=== PATIENT | male | born 1945 | race Caucasian/White ===

== ENCOUNTER 2021-06-16 21:52 | Emergency (ER) | payer MEDICARE, BC ==
[~2021-06-16] VITALS: Ht 177.8 cm; Wt 70.3 kg
--- NOTE | 2021-06-16 21:56 | NUR ---
BIBRA 89 C/O SYNCOPE EPI WHILE EATING DINNER AND DRINKING ALCOHOL PT FELL WITH LAC TO INSIDE OF BOTTOM LIP. PT A/OX4 AT THIS TIME. TOLERATING R/A WELL WITH NO SOB. CHANGE PT TO GOWN. CONNECTED PT TO POX AND MONITOR.
[2021-06-16] MEDS ORDERED: IV NS 0.9% 1,000 ML BAG IV ONE (22:00)
--- NOTE | 2021-06-16 22:14 | NUR ---
PT TAKEN TO CT VIA [facility]
--- NOTE | 2021-06-16 22:37 | NUR ---
URINE COLLECTED AND SENT TO LAB. [employer] LAB[employer]ER AT PT'S BEDSIDE
--- NOTE | 2021-06-16 22:37 | NUR ---
ORTHO VITALS SIGNS: LYING BP 108 / 55 P 72 SITTING BP 102/54 P 75 STANDING 103/ 63 P 97 PT DENIES N/V/D, DIZZINESS, OR BLURRED VISION AT THIS TIME. TOLERATED WELL.
[2021-06-16 23:03] LABS: BASOPHILS % (AUTO) 0.5 % (0.0-2.0); EOSINOPHILS % (AUTO) 0.6 % (0.0-6.0); HEMATOCRIT 46 % (39-51); HEMOGLOBIN 15.9 g/dL (13.5-17.5); LYMPHOCYTES # (AUTO) 1.9 K/uL (0.8-4.8); LYMPHOCYTES % (AUTO) 22.5 % (20.0-44.0); MEAN CORPUSCULAR HGB CONC 35 g/dl (31.0-36.0); MEAN CORPUSCULAR VOLUME 93 fL (80-96); MONOCYTES # (AUTO) 0.7 K/uL (0.1-1.30); MONOCYTES % (AUTO) 8.2 % (2.0-12.0); NEUTROPHILS # (AUTO) 5.6 K/uL (1.8-8.9); NEUTROPHILS % (AUTO) 68.2 % (43.0-81.0); PLATELET COUNT (AUTO) 363 K/uL (150-450); RED BLOOD CELL COUNT(AUTO) 4.88 MIL/uL (4.5-6.0); WHITE BLOOD COUNT (AUTO) 8.3 K/uL (4.3-11.0)
[2021-06-16 23:42] LABS: CALCIUM, SERUM 9.5 mg/dL (8.5-10.1); CARBON DIOXIDE 25 mmol/L (21-32); CHLORIDE 105 mmol/L (98-107); CREATININE 1.6 mg/dL (0.6-1.3); GLUCOSE 96 mg/dL (74-106); POTASSIUM 4.4 mmol/L (3.5-5.1); SODIUM SERUM 141 mmol/L (136-145); UREA NITROGEN, BLOOD 31 mg/dL (7-18)
[2021-06-16 23:50] LABS: ALANINE AMINOTRANSFERASE 34 U/L (12-78); ALBUMIN 4.2 g/dL (3.4-5.0); ALKALINE PHOSPHATASE 84 U/L (46-116); ASPARTATE AMINOTRANSFERASE 25 U/L (15-37); BILIRUBIN,DIRECT 0.1 mg/dL (0.0-0.2); BILIRUBIN,TOTAL 0.3 mg/dL (0.2-1.0); TOTAL PROTEIN, SERUM 7.7 g/dL (6.4-8.2)
[2021-06-17] MEDS ORDERED: IBUPROFEN 400 MG TABLET ONE (00:11)
--- NOTE | 2021-06-17 00:28 | NUR ---
Patient discharged to home in stable condition. Written and verbal after care instructions given. Patient verbalizes understanding of instruction. IV removed. Catheter intact and site benign. Pressure and 4x4 applied to site. No bleeding noted. Pt ambulatory with a steady gait
[2021-06-17 00:29] VITALS: BP 127/57
[2021-06-17] MEDS ORDERED: IBUPROFEN 400 MG TABLET PO ONE (00:30)
== END 2021-06-17 00:30 | disposition home or self-care (01) ==
LOC: ER 21:56
DX: S01.511A Laceration without foreign body of lip, initial encounter (principal); R55 Syncope and collapse; E86.0 Dehydration; I10 Essential (primary) hypertension; Z60.2 Problems related to living alone; X58.XXXA Exposure to other specified factors, initial encounter; Y93.89 Activity, other specified; Y92.89 Other specified places as the place of occurrence of the external cause; Y99.8 Other external cause status
CPT/HCPCS: 36415; 70450; 71045; 80048; 80076; 80307; 80320; 84484; 85025; 93005; 96360; 99285; J7030; G0480